=== PATIENT | male | born 1990 | race Caucasian/White ===

== ENCOUNTER 2016-10-09 23:46 | Inpatient (IN) | payer SELFPAY ==
[~2016-10-09] VITALS: Ht 175.3 cm; Wt 86.4 kg
[2016-10-10 01:00] LABS: BASOPHIL COUNT 0.1 K/uL (0-0.1); EOSINOPHIL (%) 2.8 % (0-5); EOSINOPHIL COUNT 0.2 K/uL (0-0.3); HEMATOCRIT 40.8 % (38.0-50.0); IMMATURE GRANULOCYTE (%) 0.5 % (0.0-0.7); IMMATURE GRANULOCYTE COUNT 0.3 K/uL; LYMPHOCYTE COUNT 1.8 K/uL (1.0-2.8); MCH 29.8 PG (29.0-34.0); MCV 80.6 FL (86-99); MEAN PLAT.VOLUME 10.3 uM^3 (9.0-12.4); MONOCYTE (%) 7.7 % (3-12); MONOCYTE COUNT 0.5 K/uL (0-0.8); NEUTROPHIL (%) 60.4 % (45-76); NEUTROPHIL COUNT 3.9 K/uL (1.8-6.4); PLATELET COUNT 219 K/uL (156-360); RBC DIS.WIDTH-CV 12.1 % (11.8-14.6); RBC DIS.WIDTH-SD 34.8 % (39-53); RED BLOOD COUNT 5.06 M/uL (4.00-5.50); WHITE BLOOD COUNT 6.5 K/uL (4.1-10.2)
[2016-10-10 01:08] LABS: CHLORIDE 105 mEq/L (99-109); POTASSIUM 3.4 mEq/L (3.7-5.4); SODIUM 143 mEq/L (136-147)
[2016-10-10 01:10] LABS: GLUCOSE 97 mg/dL (70-99)
[2016-10-10 01:12] LABS: ANION GAP 13 MEQ/L (2-14)
[2016-10-10 01:13] LABS: SERUM ETHYL ALCOHOL 140 mg/dL
[2016-10-10 01:14] LABS: GFR ESTIMATE (CALCULATED) > 59 mL/min/
[2016-10-10 01:15] LABS: UREA NITROGEN (BUN) 11 mg/dL (9-23)
[2016-10-10 01:51] LABS: AMPHETAMINE NEGATIVE (500 ng/mL); BARBITURATES NEGATIVE (200 ng/mL); BENZODIAZEPINES NEGATIVE (150 ng/mL); COCAINE NEGATIVE (150 ng/mL); INTERNAL CONTROLS VALID? YES; METHADONE NEGATIVE (200 ng/mL); METHAMPHETAMINE NEGATIVE (500 ng/mL); OPIATES (MORPHINE) NEGATIVE (100 ng/mL); OXYCODONE NEGATIVE (100 ng/mL); PHENCYCLIDINE NEGATIVE (25 ng/mL); PROPOXYPHENE NEGATIVE (300 ng/mL); THC CANNABINOIDS NEGATIVE (50 ng/mL); TRICYCLIC ANTIDEPRESSANTS NEGATIVE (300 ng/mL)
[2016-10-10 04:10] VITALS: BP 136/69
[2016-10-10 07:51] VITALS: BP 161/88
[2016-10-10 15:28] VITALS: BP 134/75
== END 2016-10-10 21:45 | disposition home or self-care (01) | DRG 885 ==
LOC: EME 23:46 → EDOF 10-10 02:41 → 1WEST 10-10 02:41
PROVIDERS: Emergency Medicine
DX: F33.9 Major depressive disorder, recurrent, unspecified (principal); F10.20 Alcohol dependence, uncomplicated; R45.851 Suicidal ideations
CPT/HCPCS: 80048; 85025; 90837; 99281; 99285; G0480